=== PATIENT | female | born 1960 | race African-American/Black ===

== ENCOUNTER → 2017-06-13 | Outpatient (CLI) | payer BC ==
[~2017-06-13] MED LIST: DIOVAN HCT 160-1 TAB; HCTZ PO; IBUPROFEN PO; LORTAB 7.5-5001 TAB PO
--- NOTE | ~2017-06-13 | US84 ---
[id number] [facility]. [facility] [address] [place], [place] [address] [id number] O MR#: [id number] Acc #: [id number] NAME: TANNER IRWIN : 1960 SEX: F STUDY DATE/TIME: 06/13/2017 15:59 UNIT: [facility] ROOM: STUDY DESCRIPTION: US LE Veins Complete Zack Stdy Attending Physician: Tonya Davidson Referring Physician: Tonya Davidson Ordering Physician: Tonya Davidson Primary Care Physician: Joann Rosas M.D. MEDICAL IMAGING REPORT This report is preliminary unless electronic signature is present EXAM Bilateral lower extremity venous duplex, 06/13/2017 HISTORY Bilateral lower extremity edema and pain for 2 weeks. Evaluate for deep vein thrombosis. FINDINGS Barbour-scale images of the lower extremities were obtained as well as Doppler waveform, spectral analysis and color flow Doppler imaging. There is normal blood flow and compressibility in the bilateral common femoral veins, deep femoral veins, superficial femoral veins and popliteal veins. Normal blood flow and compressibility is seen in the calf veins bilaterally. There is a 2 cm x 1 cm x 2.6 cm fluid collection in the left popliteal fossa characteristic of a Sales's cyst. IMPRESSION 1. No evidence of deep vein thrombosis in the lower extremities bilaterally. 2. A 2.6 cm fluid collection in the left popliteal fossa characteristic of a Sales's cyst. Dictated by... Yung Albarado M.D. THIS IS AN ELECTRONICALLY VERIFIED REPORT Yung Albarado M.D. at 06/14/2017 7:18 AM ADRIANA/alessia TD: 06/14/2017 02:13 JOB #: [id number] MEDICAL IMAGING REPORT Page 1 of 1 COPY
== END | disposition home or self-care (01) ==
LOC: CNIV 15:35
DX: M79.89 Other specified soft tissue disorders (principal)
CPT/HCPCS: 93970